=== PATIENT | female | born 1995 | race Caucasian/White ===

== ENCOUNTER 2021-04-28 10:48 | Emergency (ER) | payer OTHER ==
[~2021-04-28] VITALS: Ht 170.2 cm; Wt 54.4 kg
[2021-04-28 11:58] LABS: HEMATOCRIT 39.6 % (31.2-41.9); MEAN CORPUSCULAR HEMOGLOBIN 30.8 uug (24.7-32.8); PLATELET COUNT (AUTO) 248 K/uL (179-408)
[2021-04-28 12:17] LABS: BILIRUBIN,DIRECT 0.3 mg/dL (0.0-0.2); BILIRUBIN,TOTAL 2.1 mg/dL (0.2-1.0); CREATININE 0.7 mg/dL (0.6-1.3); POTASSIUM 4.4 mmol/L (3.5-5.1); TOTAL PROTEIN, SERUM 7.7 g/dL (6.4-8.2)
[2021-04-28] MEDS ORDERED: PANTOPRAZOLE SODIUM 40 MG TABLET.DR PO ONE ×2 (13:45→13:57)
[2021-04-28] MEDS ORDERED: LIDOCAINE VISCUS 2% 15 ML UDC MM ONE (13:45)
[2021-04-28] MEDS ORDERED: MAG HYDROX/AL HYDROX/SIMETH 30 ML LIQUID UDC PO ONE (13:45)
--- NOTE | 2021-04-28 13:53 | NUR ---
Pt states her pain is about 6-7/10 at this time, pt medicated with GI coctail as ordered. NAD noted.
[2021-04-28] MEDS ORDERED: MAG HYDROX/AL HYDROX/SIMETH 30 ML LIQUID UDC ONE (13:56)
[2021-04-28] MEDS ORDERED: LIDOCAINE VISCUS 2% 15 ML UDC ONE (13:56)
[2021-04-28] MEDS ORDERED: IBUP-1955 PO (14:12)
== END 2021-04-28 14:54 | disposition home or self-care (01) ==
LOC: ER 10:48
DX: M94.0 Chondrocostal junction syndrome [Tietze] (principal); R06.02 Shortness of breath; Z20.822 Contact with and (suspected) exposure to COVID-19; I45.10 Unspecified right bundle-branch block
CPT/HCPCS: 36415; 70030-TC; 71045; 85025; 93005; A4663